=== PATIENT | male | born 2005 | race Two or more races ===

== ENCOUNTER 2024-04-26 12:15 | Emergency (ER) | payer OTHER ==
[~2024-04-26] VITALS: Ht 172.7 cm; Wt 59.0 kg
[2024-04-26] MEDS ORDERED: AMOX1TAB5 PO (16:27)
== END 2024-04-26 16:32 | disposition home or self-care (01) ==
LOC: ER 12:17 → EMR PED 14:44 → ER 14:44
DX: S90.212A Contusion of left great toe with damage to nail, initial encounter (principal); W21.89XA Striking against or struck by other sports equipment, initial encounter; Y93.89 Activity, other specified; Y92.89 Other specified places as the place of occurrence of the external cause

== ENCOUNTER 2024-05-10 11:19 | Emergency (ER) | payer OTHER ==
[~2024-05-10] VITALS: Ht 172.7 cm; Wt 59.0 kg
[~2024-05-10 11:19] MED LIST: AMOX1TAB5 PO
== END 2024-05-10 14:15 | disposition home or self-care (01) ==
LOC: ER 11:22 → EMR PED 12:23
DX: Z48.02 Encounter for removal of sutures (principal)